=== PATIENT | female | born 1995 | race Two or more races ===

== ENCOUNTER 2025-08-04 18:41 | Emergency (ER) | payer BC ==
[~2025-08-04] VITALS: Ht 160 cm; Wt 72.6 kg
[2025-08-04 18:54] VITALS: BP 111/68; TEMP 98.2; O2SAT 99
== END 2025-08-04 20:19 | disposition home or self-care (01) ==
LOC: ER 18:52
DX: O26.892 Other specified pregnancy related conditions, second trimester (principal); S30.11XA Contusion of abdominal wall, initial encounter; Z3A.19 19 weeks gestation of pregnancy; W10.9XXA Fall (on) (from) unspecified stairs and steps, initial encounter; Y93.89 Activity, other specified; Y92.89 Other specified places as the place of occurrence of the external cause; Y99.8 Other external cause status
CPT/HCPCS: 76856-TC